=== PATIENT | female | born 1940 | race Caucasian/White ===

== ENCOUNTER 2021-04-08 10:32 | Day surgery (SDC) | payer OTHER ==
[~2021-04-08] VITALS: Ht 167.6 cm; Wt 0.6 kg
[2021-04-08 11:20] VITALS: BP 129/69
[2021-04-08] MEDS ORDERED: ELIQUIS5 MG PO (11:48)
[2021-04-08] MEDS ORDERED: TOPROL XL50 MG PO (11:49)
[2021-04-08] MEDS ORDERED: POTASSIUM CHLOR8 MEQ PO (11:51)
[2021-04-08] MEDS ORDERED: ACYCLOVIR 400400 MG PO (11:52)
[2021-04-08] MEDS ORDERED: LASIX 40 MG TAB40 MG PO (11:53)
[2021-04-08] MEDS ORDERED: MONTELUKAST SODI4 M1 PO (11:54)
[2021-04-08] MEDS ORDERED: NORVASC5 MG PO (11:54)
[2021-04-08] MEDS ORDERED: SIMVASTATIN80 MG PO (11:55)
[2021-04-08] MEDS ORDERED: SUPER THERAVIT1 EACH PO (11:56)
[2021-04-08] MEDS ORDERED: PROBIOTIC1 EAC7 PO (11:57)
[2021-04-08] MEDS ORDERED: BLACK ELDERBER1 EACH PO (11:58)
--- NOTE | 2021-04-12 06:11 | O ---
[facility] [place] [address] OPERATIVE REPORT Name: KING MARR Room #: DEP [facility]..#: [id number] Admission: 04/08/21 Attend Phys: Davonte Cha MD Discharge: 04/08/21 Date of : 44 Report #: [id number] THIS REPORT FOR: cc: FAM - Family physician unknown FAM - Family physician unknown Davonte Cha MD ~ DATE OF SERVICE: 04/08/2021 PREOPERATIVE DIAGNOSIS: Tumor of left lower lid and lateral canthus. POSTOPERATIVE DIAGNOSES: Tumor of left lower lid and lateral canthus, basal cell carcinoma. PROCEDURES: Excision of lesions, left lower lid and lateral canthus with frozen sections and myocutaneous flap repair of defect. SURGEON: Davonte Cha MD CELL TUBER MACHINE: None. ANESTHESIA: MAC. COMPLICATIONS: None. INDICATIONS FOR SURGERY: This pleasant 80-year-old woman has an irregularly pigmented pearly nodule in her lateral left lower lid extending directly over the lateral canthus that appears to most likely be a basal cell carcinoma. She presents today for excision of this lesion with frozen section control of margins and subsequent reconstruction of that defect. Informed consent was obtained to include but not limited to the potential risk for loss of vision, bleeding, infection, failure to improve the problem, the potential need for further surgery or treatment. DESCRIPTION OF PROCEDURE: The patient was taken to the operating room where 2% Xylocaine with epinephrine mixed with equal parts 0.75% Marcaine with Wydase was administered transcutaneously to the left lower lid, the left upper lid, the left lateral canthus and the left infratemporal fossa. The patient was subsequently prepped and draped in the usual sterile fashion. A fine tip skin marking pen was then utilized to outline the lesion including approximately 2-3 mm of normal appearing tissue. The incisions were then made with a 15C blade and the dissection carried down into the subcutaneous structures. Dissection deep was accomplished with sharp dissection, almost universally. The specimen was then oriented on a drawing for the waiting pathologist as hemostasis was achieved in the field. The pathologist snap froze that tissue and found that the lesion was indeed a basal cell carcinoma and she felt that our margins were clear. [address] [address] OPERATIVE REPORT Name: KING MARR Room #: [facility]P [facility]..#: [id number] Admission: 04/08/21 Attend Phys: Davonte Cha MD Discharge: 04/08/21 Date of : 44 Report #: [id number] Reconstructive options were considered and a myocutaneous flap was elected to be used from superotemporally. A relaxing incision made and dissection accomplished mobilizing a wide area of tissue. The subcutaneous structures were then advanced and closed with interrupted buried 5-0 Vicryl and 6-0 Vicryl sutures. More tension was on this tissue than one would have initially anticipated based on it being oriented parallel to relaxed skin tension line. Be that as it may, subcutaneous structures were reapproximated crisply. The skin was then closed with 5-0 nylon suture. The wound was then cleaned and dressed with erythromycin ophthalmic ointment. The patient subsequently transported to the recovery area having tolerated the procedure well with no anesthetic or operative complications being noted. <ELECTRONICALLY SIGNED> By: Davonte Cha MD 04/12/21 0611 1219 1311 Davonte Cha MD /nt
--- NOTE | 2021-04-12 12:06 | PATH ---
[facility] [place] [address] PATHOLOGY RPT PROCEDURE Name: KING MARR Room #: DEP [facility]..#: [id number] Admission: 04/08/21 Date of : 44 Discharge: 04/08/21 Report #: [id number] Path Case #: [id number] [facility] Accession Number: [id number] . 01 Material submitted: . canthus - LESION LEFT LOWER EYELID LATERAL CANTHUS- FS. Modifiers: left, lower, lateral . 01 Clinical history: . NEOPLASM OF UNSPECIFIED BEHAVIOR OF BONE,SOFT TISSUE,AND SKIN . 02 Frozen section diagnosis: . INTRAOPERATIVE DIAGNOSIS: (Yancy Grider MD) . Left lower lid, BCC, excision: - Basal cell carcinoma. - All margins are negative. . The report was given to Dr. Cha by Dr. Grider at 1312 pm on 04/08/2021 at [facility] and a written report is placed in the patient's chart. . . FROZEN SECTION GROSS DESCRIPTION: The specimen is received labeled with the patient's name and lesion left lower eyelid, lateral canthus, and consists of a skin ellipse which measures 2.5 x 1.0 x 0.7 cm. The specimen is oriented per surgeon as superior, lateral, inferior, and medial margins. The medial to lateral margin is inked black, lateral to inferior margin is inked blue and the inferior to medial margin is inked red, and the entire lesion is submitted for frozen section diagnosis in FSA1 and subsequently in block A1. (ANK:guadalupe; 04/08/2021) . . . Frozen section performed at [facility], [address] [place] [address] , [place] [address]. KALYN/QMS . 01 Diagnosis: Skin, lesion left lower eyelid lateral canthus: - Nodular invasive basal cell carcinoma completely excised. . (SHA:mml; 04/09/2021) QLM 04/09/2021 1042 Local . 01 [facility] [address] [place] [address] PATHOLOGY RPT PROCEDURE Name: KING MARR Room #: DE[facility].#: [id number] Admission: 04/08/21 Date of : 44 Discharge: 04/08/21 Report #: [id number] Path Case #: [id number] Electronically signed: . Shin Pereyra MD, Pathologist NPI- [id number] . 01 Gross description: . PLEASE SEE GROSS DESCRIPTION UNDER FROZEN SECTION HEADING. . A1: Frozen section tissue remnant, entirely submitted A2-A3: Remainder of specimen, entirely submitted to include the tips submitted in A3. (WIYOT; 04/08/2021) DKA/QMS 04/09/2021 1041 Local . 01 Pathologist provided ICD-10: C44.1192 . 01 CPT . 257068, 101722 Specimen Comment: A courtesy copy of this report has been sent to [phone] Specimen Comment: Report sent to Specimen Comment: A duplicate report has been generated due to demographic updates. Performed at: [address] [facility], [place] [id number] MD Shin Pereyra MD Phone: [phone] Performed at: [address] [facility] [id number] MD Yancy Grider MD Phone: [phone]
== END 2021-04-08 14:06 | disposition home or self-care (01) ==
LOC: OR 10:32 → TBA 10:38 → OR 10:39
PROVIDERS: ATTEND Ophthalmology
DX: C44.1192 Basal cell carcinoma of skin of left lower eyelid, including canthus (principal); I10 Essential (primary) hypertension; E11.9 Type 2 diabetes mellitus without complications; J43.9 Emphysema, unspecified; Z98.890 Other specified postprocedural states; Z79.899 Other long term (current) drug therapy; Z85.038 Personal history of other malignant neoplasm of large intestine; Z85.528 Personal history of other malignant neoplasm of kidney; Z90.5 Acquired absence of kidney; Z20.822 Contact with and (suspected) exposure to COVID-19; Z96.653 Presence of artificial knee joint, bilateral; Z90.711 Acquired absence of uterus with remaining cervical stump
CPT/HCPCS: 50010; 50101; 50386; 50398; 51636; 56527; 56528; 56531; 62110; 62850; 70005